=== PATIENT | female | born 1960 | race Caucasian/White ===

== ENCOUNTER 2023-11-01 12:12 | Inpatient (IN) ==
[2023-11-01 13:04] LABS: ABS Basophils 0.1 10^3/uL (0.0-0.1); ABS Eosinophils 0.1 10^3/uL (0.0-0.5); ABS Lymphocytes 1.1 10^3/uL (1.0-4.8); ABS Monocytes 0.9 10^3/uL (0.0-0.9); ABS Neutrophils 6.9 10^3/uL (1.5-7.6); Eosinophil % 1.1 %; Hematocrit 38.5 % (35-45); Hemoglobin 12.5 g/dL (11.5-14.3); Lymphocyte % 12.3 %; Mean Corpuscular Hemoglobin 32.4 pg (27-33); Mean Corpuscular Hgb Conc 32.5 g/dL (31-36); Mean Corpuscular Volume 99.7 fL (80-97); Mean Platelet Volume 10.5 fL (7.5-11.2); Platelet Count 239 10^3/uL (150-450); Red Blood Count 3.86 10^6/uL (3.63-4.92); Red Cell Distribution Width 14.9 % (12-17); White Blood Count 9.1 10^3/uL (3.8-11.8)
[2023-11-01 13:15] LABS: INR 0.99 (0.83-1.13)
[2023-11-01 13:25] LABS: ALT 17 U/L (7-52); AST 17 U/L (13-39); Albumin 3.1 g/dL (3.2-5.2); Alkaline Phosphatase 85 U/L (35-149); Anion Gap 18 mmol/L (2-16); Blood Urea Nitrogen 50 mg/dL (6-24); CO2 Carbon Dioxide 25 mmol/L (22-32); Calcium 8.6 mg/dL (8.6-10.3); Chloride 101 mmol/L (101-111); Creatine Kinase 75 U/L (10-223); Creatinine, Serum 1.73 mg/dL (0.51-0.95); Direct Bilirubin 0.1 mg/dL (0.03-0.18); Globulin 3.1 g/dL (2-4); Glucose 86 mg/dL (70-100); Indirect Bilirubin 0.5 mg/dL (0.3-1.0); Lipase 36 U/L (11.0-82.0); Magnesium 1.7 mg/dL (1.9-2.7); Potassium 4.1 mmol/L (3.5-5.0); Sodium 144 mmol/L (135-145); Total Bilirubin 0.6 mg/dL (0.2-1.0); Total Protein 6.2 g/dL (6.4-8.9); eGFR CKD-EPI 32.4 (>60)
[2023-11-01 13:31] LABS: High Sens Troponin Baseline 40 pg/mL (<15)
[2023-11-01 13:36] LABS: Alcohol, S < 13 mg/dL (<13)
[2023-11-01 13:50] LABS: TSH Ultra Thyroid Stim Horm 1.18 mcIU/mL (0.34-5.60)
[2023-11-01] MEDS ORDERED: Lorazepam PYXIS KEY PRN (14:01)
[2023-11-01] MEDS ORDERED: LORazepam 2 mg VIAL 1 ml IV PUSH PRN (14:01)
[2023-11-01 14:06] LABS: Urine Appearance Turbid; Urine Bilirubin 1+ (Negative); Urine Blood 1+ (Negative); Urine Color Yellow; Urine Glucose Negative (Negative); Urine Ketones 1+ (Negative); Urine Nitrite Negative (Negative); Urine Protein 1+ (>=30 mg/dL) (Negative); Urine Specific Gravity 1.017 (1.002-1.030); Urine Urobilinogen 2+ (Negative)
[2023-11-01 14:15] LABS: Urine Bacteria 2+ /HPF (Absent); Urine Red Blood Cell 3+(>10/hpf) /HPF (0-Trace); Urine Squamous Epithelial Cell Present /HPF (Absent); Urine White Blood Cell 3+(>20/hpf) /HPF (0-Trace)
[2023-11-01 14:29] LABS: High Sensitivity Troponin 1 Hr 37 pg/mL (<15)
[2023-11-01 14:33] LABS: Urine Benzodiazepine Screen None Detected (None Detect); Urine Cannabinoids Screen None Detected (None Detect); Urine Opiates Screen None Detected (None Detect)
[2023-11-01] MEDS: Magnesium Sulfate 2 gm BAG 2 GM/50 ML BAG IVPB ONE (14:45)
[2023-11-01] MEDS: Lactated Ringers 1000 ml BAG 1,000 ML IV ONE (16:14)
[2023-11-01] MEDS: Thiamine 100 MG/ML 2 ml VIAL 100 MG, Folic Acid IV 1 MG, Multiple Vitamin IV ADULT 10 M... IV ONE (16:14)
[2023-11-01 17:08] LABS: Folate 5.65 ng/mL (5.90-24.80)
[2023-11-01 17:09] LABS: Vitamin B12 433 pg/mL (180-914)
[2023-11-01 19:17] LABS: Urine Benzodiazepine Screen None Detected (None Detect); Urine Buprenorphine Screen None Detected (None Detect); Urine Cannabinoids Screen None Detected (None Detect); Urine Fentanyl Screen None Detected (None Detect); Urine Hydrocodone Screen None Detected (None Detect); Urine Opiates Screen None Detected (None Detect)
[2023-11-01] MEDS: Lactated Ringers 1000 ml BAG 1,000 ML IV SCH (21:12)
[2023-11-01] MEDS: Thiamine 100 MG/ML 2 ml VIAL 500 MG in NS 0.9% 250 ml 250 ML IV ONE (22:12)
[2023-11-01] MEDS: Heparin 5000 UNITS/ML 1 mL VIAL SUBCUT SCH (22:41)
[2023-11-01] MEDS: cefTRIAXone 1 gm/50 mL D5W 1 GM/50 ML BAG IV SCH (23:35)
[2023-11-02 05:58] LABS: Hematocrit 28.2 % (35-45); Hemoglobin 9.4 g/dL (11.5-14.3); Mean Corpuscular Hgb Conc 33.2 g/dL (31-36); Mean Corpuscular Volume 99.3 fL (80-97); Mean Platelet Volume 10.4 fL (7.5-11.2); Platelet Count 173 10^3/uL (150-450); Red Blood Count 2.84 10^6/uL (3.63-4.92); Red Cell Distribution Width 14.6 % (12-17); White Blood Count 8.9 10^3/uL (3.8-11.8)
[2023-11-02 06:19] LABS: Calcium 7.2 mg/dL (8.6-10.3); Creatinine, Serum 1.55 mg/dL (0.51-0.95); Magnesium 1.5 mg/dL (1.9-2.7)
[2023-11-02] MEDS: Potassium Chlor 20 meq TAB.ER PO ONE ×2 (10:10→18:33)
[2023-11-02] MEDS: Thiamine 100 MG/ML 2 ml VIAL 500 MG in NS 0.9% 250 ml 250 ML IV ONE (12:25)
[2023-11-02] MEDS: Magnesium Sulf 4 GM/100 ML IV 4,000 MG/100 ML BAG IVPB ONE (14:27)
[2023-11-02] MEDS: Thiamine 100 MG/ML 2 ml VIAL 500 MG in NS 0.9% 250 ml 250 ML IV SCH (22:13)
[2023-11-03 04:58] LABS: Hematocrit 29.3 % (35-45); Hemoglobin 9.8 g/dL (11.5-14.3); Mean Corpuscular Hemoglobin 32.9 pg (27-33); Mean Corpuscular Hgb Conc 33.6 g/dL (31-36); Mean Platelet Volume 10.5 fL (7.5-11.2); Platelet Count 172 10^3/uL (150-450); Red Blood Count 2.99 10^6/uL (3.63-4.92); Red Cell Distribution Width 14.7 % (12-17)
[2023-11-03 05:20] LABS: Calcium 7.6 mg/dL (8.6-10.3); Creatinine, Serum 1.52 mg/dL (0.51-0.95); Magnesium 2.6 mg/dL (1.9-2.7); Potassium 4.3 mmol/L (3.5-5.0); eGFR CKD-EPI 37.8 (>60)
[2023-11-03] MEDS: Nystatin TOP POWDER 15 GM BTL TOPICAL PRN (13:57)
[2023-11-04 05:46] LABS: ABS Eosinophils 0.2 10^3/uL (0.0-0.5); ABS Lymphocytes 1.2 10^3/uL (1.0-4.8); ABS Monocytes 0.7 10^3/uL (0.0-0.9); ABS Neutrophils 6.4 10^3/uL (1.5-7.6); ABS Nucleated RBC 0.01 10^3/ul; Eosinophil % 2.2 %; Hematocrit 30.3 % (35-45); Hemoglobin 10.1 g/dL (11.5-14.3); Lymphocyte % 13.9 %; Mean Corpuscular Hemoglobin 33.1 pg (27-33); Mean Corpuscular Hgb Conc 33.4 g/dL (31-36); Mean Platelet Volume 10.7 fL (7.5-11.2); Nucleated Red Blood Cells % 0.1 %/100WBC (0.0-0.8); Platelet Count 163 10^3/uL (150-450); Red Blood Count 3.06 10^6/uL (3.63-4.92); Red Cell Distribution Width 14.9 % (12-17); White Blood Count 8.6 10^3/uL (3.8-11.8)
[2023-11-04 06:04] LABS: Calcium 7.8 mg/dL (8.6-10.3); Creatinine, Serum 1.65 mg/dL (0.51-0.95); Magnesium 1.9 mg/dL (1.9-2.7); Phosphorus 2.2 mg/dL (2.5-5.0); Potassium 4.2 mmol/L (3.5-5.0); eGFR CKD-EPI 34.3 (>60)
[2023-11-04] MEDS ORDERED: Magnesium Hydroxide LIQ 30 ML UDC PO PRN (15:13)
[2023-11-04] MEDS ORDERED: Senna TAB 8.6 mg TAB PO PRN (15:13)
[2023-11-05 06:26] LABS: Hematocrit 30.4 % (35-45); Hemoglobin 10.1 g/dL (11.5-14.3); Mean Corpuscular Hgb Conc 33.1 g/dL (31-36); Mean Corpuscular Volume 99.6 fL (80-97); Mean Platelet Volume 10.5 fL (7.5-11.2); Platelet Count 175 10^3/uL (150-450); Red Blood Count 3.05 10^6/uL (3.63-4.92); Red Cell Distribution Width 14.7 % (12-17)
[2023-11-05 06:44] LABS: Calcium 8.3 mg/dL (8.6-10.3); Creatinine, Serum 1.33 mg/dL (0.51-0.95); Magnesium 1.5 mg/dL (1.9-2.7); Potassium 4.4 mmol/L (3.5-5.0); eGFR CKD-EPI 44.4 (>60)
[2023-11-05] MEDS: Magnesium Sulfate 2 gm BAG 2 GM/50 ML BAG IVPB ONE (08:34)
[2023-11-05] MEDS: Polyethylene Glycol 3350 17 GM PACKET PO SCH (08:37)
[2023-11-05] MEDS: Thiamine 100 MG/ML 2 ml VIAL 250 MG in NS 0.9% 100 ml BAG 100 ML IV SCH (10:12)
[2023-11-05] MEDS: Magnesium Hydroxide LIQ 30 ML UDC PO SCH (12:12)
[2023-11-05] MEDS: Senna TAB 8.6 mg TAB PO SCH (22:01)
[2023-11-06 05:43] LABS: ABS Basophils 0.1 10^3/uL (0.0-0.1); ABS Eosinophils 0.4 10^3/uL (0.0-0.5); ABS Lymphocytes 1.3 10^3/uL (1.0-4.8); ABS Monocytes 0.9 10^3/uL (0.0-0.9); ABS Neutrophils 5.4 10^3/uL (1.5-7.6); ABS Nucleated RBC 0.01 10^3/ul; Eosinophil % 4.8 %; Hematocrit 27.9 % (35-45); Hemoglobin 9.5 g/dL (11.5-14.3); Lymphocyte % 16.3 %; Mean Corpuscular Hemoglobin 33.4 pg (27-33); Mean Corpuscular Volume 98.3 fL (80-97); Nucleated Red Blood Cells % 0.1 %/100WBC (0.0-0.8); Platelet Count 183 10^3/uL (150-450); Red Blood Count 2.84 10^6/uL (3.63-4.92); Red Cell Distribution Width 15.1 % (12-17)
[2023-11-06 06:00] LABS: Calcium 8.2 mg/dL (8.6-10.3); Creatinine, Serum 1.15 mg/dL (0.51-0.95); Magnesium 1.6 mg/dL (1.9-2.7); Potassium 4.4 mmol/L (3.5-5.0); eGFR CKD-EPI 52.9 (>60)
[2023-11-06 11:18] LABS: Copper, S 76 mcg/dL (77-206)
[2023-11-06] MEDS: Lactated Ringers 1000 ml BAG 1,000 ML IV ONE ×2 (15:50→19:31)
[2023-11-06 23:10] LABS: Albumin 1.9 g/dL (3.4-4.7); Flag, M-protein Isotype Negative (Negative); Total Protein 4.6 g/dL (6.3 - 7.9)
[2023-11-07 06:42] LABS: ABS Basophils 0.1 10^3/uL (0.0-0.1); ABS Eosinophils 0.4 10^3/uL (0.0-0.5); ABS Lymphocytes 1.2 10^3/uL (1.0-4.8); ABS Neutrophils 6.7 10^3/uL (1.5-7.6); Eosinophil % 4.5 %; Hematocrit 26.2 % (35-45); Hemoglobin 8.9 g/dL (11.5-14.3); Lymphocyte % 12.9 %; Mean Corpuscular Hemoglobin 33.7 pg (27-33); Mean Corpuscular Hgb Conc 33.9 g/dL (31-36); Mean Corpuscular Volume 99.2 fL (80-97); Mean Platelet Volume 10.4 fL (7.5-11.2); Platelet Count 178 10^3/uL (150-450); Red Blood Count 2.65 10^6/uL (3.63-4.92); Red Cell Distribution Width 15.7 % (12-17); White Blood Count 9.4 10^3/uL (3.8-11.8)
[2023-11-07 07:37] LABS: Anion Gap 7 mmol/L (2-16); Blood Urea Nitrogen 13 mg/dL (6-24); CO2 Carbon Dioxide 27 mmol/L (22-32); Calcium 8.5 mg/dL (8.6-10.3); Chloride 104 mmol/L (101-111); Creatinine, Serum 1.07 mg/dL (0.51-0.95); Glucose 90 mg/dL (70-100); Sodium 138 mmol/L (135-145); eGFR CKD-EPI 57.6 (>60)
[2023-11-07 09:14] LABS: Magnesium 1.7 mg/dL (1.9-2.7); Potassium Redraw 4.6 mmol/L (3.5-5.0)
[2023-11-07] MEDS: Enoxaparin 40 MG/0.4 ML SYR SUBCUT SCH (19:58)
[2023-11-09 11:38] LABS: Hematocrit 27.6 % (35-45); Hemoglobin 9.3 g/dL (11.5-14.3); Mean Corpuscular Hemoglobin 33.2 pg (27-33); Mean Corpuscular Hgb Conc 33.7 g/dL (31-36); Mean Corpuscular Volume 98.7 fL (80-97); Mean Platelet Volume 9.1 fL (7.5-11.2); Platelet Count 253 10^3/uL (150-450); Red Cell Distribution Width 15.6 % (12-17); White Blood Count 7.7 10^3/uL (3.8-11.8)
[2023-11-09 11:54] LABS: Calcium 8.9 mg/dL (8.6-10.3); Creatinine, Serum 1.09 mg/dL (0.51-0.95); Magnesium 1.5 mg/dL (1.9-2.7); Potassium 4.9 mmol/L (3.5-5.0); eGFR CKD-EPI 56.4 (>60)
[2023-11-09] MEDS ORDERED: Magnesium Hydroxide LIQ 30 ML UDC PO PRN (17:44)
[2023-11-09] MEDS: Magnesium Sulf 4 GM/100 ML IV 4,000 MG/100 ML BAG IVPB ONE (19:18)
[2023-11-09] MEDS: Senna TAB 8.6 mg TAB PO SCH (20:10)
[2023-11-10 06:37] LABS: CRP High Sensitivity 28.71 mg/L (<2.00); Magnesium 1.7 mg/dL (1.9-2.7)
[2023-11-10 06:45] LABS: High Sens Troponin Baseline 14 pg/mL (<15)
[2023-11-10 07:30] LABS: High Sensitivity Troponin 1 Hr 16 pg/mL (<15)
[2023-11-10 14:13] LABS: Creatine Kinase 24 U/L (10-223)
[2023-11-13 13:53] VITALS: BP 125/67
== END 2023-11-13 11:52 | disposition swing bed (61) | DRG 897 ==
LOC: EDHOLD 12:12 → ED 12:12 → SUATTDRO 13:58 → MEDTELE 20:06
PROVIDERS: ADMIT Internal Medicine; ATTEND Internal Medicine

== ENCOUNTER 2023-11-13 12:56 | Inpatient (IN) ==
[2023-11-13] MEDS ORDERED: Magnesium Hydroxide LIQ 30 ML UDC PO PRN (15:32)
[2023-11-13] MEDS ORDERED: Nystatin TOP POWDER 15 GM BTL TOPICAL PRN (15:32)
[2023-11-13] MEDS ORDERED: Nicotine GUM 2MG FRUIT FLAVOR PO PRN (18:37)
[2023-11-13] MEDS: Senna TAB 8.6 mg TAB PO SCH (20:01)
[2023-11-14] MEDS: Enoxaparin 40 MG/0.4 ML SYR SUBCUT SCH (08:03)
[2023-11-14] MEDS: Polyethylene Glycol 3350 17 GM PACKET PO SCH (08:06)
[2023-11-14 09:59] VITALS: BP 126/75
[2023-11-14 11:17] LABS: ABS Basophils 0.1 10^3/uL (0.0-0.1); ABS Eosinophils 0.3 10^3/uL (0.0-0.5); ABS Lymphocytes 1.1 10^3/uL (1.0-4.8); ABS Monocytes 0.6 10^3/uL (0.0-0.9); ABS Neutrophils 4.4 10^3/uL (1.5-7.6); Hematocrit 27.4 % (35-45); Hemoglobin 9.1 g/dL (11.5-14.3); Mean Corpuscular Hemoglobin 33.4 pg (27-33); Mean Corpuscular Hgb Conc 33.1 g/dL (31-36); Mean Corpuscular Volume 100.9 fL (80-97); Mean Platelet Volume 8.5 fL (7.5-11.2); Platelet Count 342 10^3/uL (150-450); Red Blood Count 2.72 10^6/uL (3.63-4.92); Red Cell Distribution Width 16.2 % (12-17); White Blood Count 6.6 10^3/uL (3.8-11.8)
[2023-11-14 11:51] LABS: Albumin 2.9 g/dL (3.2-5.2); Albumin/Globulin Ratio 1.1 (1-3); Calcium 9.1 mg/dL (8.6-10.3); Creatinine, Serum 1.1 mg/dL (0.51-0.95); Globulin 2.7 g/dL (2-4); Potassium 5.3 mmol/L (3.5-5.0); Total Bilirubin 0.3 mg/dL (0.2-1.0); Total Protein 5.6 g/dL (6.4-8.9); eGFR CKD-EPI 55.8 (>60)
[2023-11-14 12:39] LABS: C Reactive Protein 13.69 mg/L (<8.01)
== END 2023-11-14 12:04 | disposition short-term general hospital (02) | DRG 641 ==
LOC: MEDTELE 12:56 → SUATTDRO 12:56
PROVIDERS: ADMIT Internal Medicine; ATTEND Internal Medicine

== ENCOUNTER 2023-11-14 11:50 | Observation (INO) ==
[2023-11-14] MEDS ORDERED: Nicotine GUM 2MG FRUIT FLAVOR PO PRN (12:12)
[2023-11-14] MEDS ORDERED: Nystatin TOP POWDER 15 GM BTL TOPICAL PRN (12:12)
[2023-11-14] MEDS ORDERED: Magnesium Hydroxide LIQ 30 ML UDC PO PRN (12:12)
[2023-11-14] MEDS: Furosemide 40 mg/4 ml IV VIAL IV SLOW PU ONE (20:55)
[2023-11-14] MEDS: Senna TAB 8.6 mg TAB PO SCH (20:55)
[2023-11-15 06:15] LABS: ABS Basophils 0.1 10^3/uL (0.0-0.1); ABS Eosinophils 0.4 10^3/uL (0.0-0.5); ABS Lymphocytes 1.3 10^3/uL (1.0-4.8); ABS Monocytes 0.8 10^3/uL (0.0-0.9); ABS Neutrophils 5.2 10^3/uL (1.5-7.6); Eosinophil % 5.4 %; Hematocrit 25.7 % (35-45); Hemoglobin 8.7 g/dL (11.5-14.3); Lymphocyte % 17.2 %; Mean Corpuscular Hemoglobin 33.9 pg (27-33); Mean Corpuscular Hgb Conc 33.7 g/dL (31-36); Mean Corpuscular Volume 100.6 fL (80-97); Mean Platelet Volume 8.9 fL (7.5-11.2); Platelet Count 321 10^3/uL (150-450); Red Blood Count 2.55 10^6/uL (3.63-4.92); Red Cell Distribution Width 15.7 % (12-17); White Blood Count 7.8 10^3/uL (3.8-11.8)
[2023-11-15 06:29] LABS: Albumin 2.7 g/dL (3.2-5.2); Albumin/Globulin Ratio 1.1 (1-3); Calcium 8.7 mg/dL (8.6-10.3); Creatinine, Serum 1.27 mg/dL (0.51-0.95); Globulin 2.5 g/dL (2-4); Magnesium 1.5 mg/dL (1.9-2.7); Potassium 4.7 mmol/L (3.5-5.0); Total Bilirubin 0.3 mg/dL (0.2-1.0); Total Protein 5.2 g/dL (6.4-8.9); eGFR CKD-EPI 46.9 (>60)
[2023-11-15] MEDS ORDERED: Enoxaparin 40 MG/0.4 ML SYR SUBCUT SCH (09:00)
[2023-11-15] MEDS: Magnesium Sulf 4 GM/100 ML IV 4,000 MG/100 ML BAG IVPB ONE (10:47)
[2023-11-15] MEDS: Polyethylene Glycol 3350 17 GM PACKET PO SCH (11:37)
[2023-11-15] MEDS ORDERED: Sulfur Hexaflouride MICROSPHR 25 MG VIAL ONE (14:06)
[2023-11-15] MEDS: Enoxaparin 40 MG/0.4 ML SYR SUBCUT SCH (21:36)
[2023-11-15] MEDS: Iodixanol (CONTRAST) 320 MG/ML 100 ML SDV IV ONE (22:18)
[2023-11-16 05:58] LABS: ABS Basophils 0.1 10^3/uL (0.0-0.1); ABS Eosinophils 0.3 10^3/uL (0.0-0.5); ABS Lymphocytes 1.6 10^3/uL (1.0-4.8); ABS Monocytes 0.8 10^3/uL (0.0-0.9); ABS Neutrophils 3.9 10^3/uL (1.5-7.6); ABS Nucleated RBC 0.01 10^3/ul; Eosinophil % 5.1 %; Hematocrit 25.2 % (35-45); Hemoglobin 8.4 g/dL (11.5-14.3); Lymphocyte % 23.7 %; Mean Corpuscular Hemoglobin 33.9 pg (27-33); Mean Corpuscular Hgb Conc 33.4 g/dL (31-36); Mean Corpuscular Volume 101.5 fL (80-97); Nucleated Red Blood Cells % 0.1 %/100WBC (0.0-0.8); Platelet Count 310 10^3/uL (150-450); Red Blood Count 2.48 10^6/uL (3.63-4.92); Red Cell Distribution Width 16.1 % (12-17); White Blood Count 6.8 10^3/uL (3.8-11.8)
[2023-11-16 06:05] LABS: C Reactive Protein 21.32 mg/L (<8.01); Calcium 8.5 mg/dL (8.6-10.3); Creatinine, Serum 1.1 mg/dL (0.51-0.95); Magnesium 2.3 mg/dL (1.9-2.7); Potassium 4.8 mmol/L (3.5-5.0); eGFR CKD-EPI 55.8 (>60)
[2023-11-16 13:30] LABS: Body Fluid Total Nucleated 237 /mcL
[2023-11-16 14:12] LABS: Body Fluid Mono 18 %; Body Fluid Other Cells 12; Body Fluid Total Cells Counted 200
[2023-11-16 17:36] LABS: Body Fluid Source Pleural Fluid
[2023-11-16 17:37] LABS: Body Fluid Appearance Clear; Body Fluid Color Colorless
[2023-11-17 10:06] VITALS: BP 123/66
[2023-11-17 10:17] LABS: Albumin, BF 0.8 g/dL; Fluid Type, Albumin PLEURAL FLUID
[2023-11-18 10:37] LABS: Fluid Type, Protein, Total PLEURAL; Glucose, BF 96 mg/dL; Total Protein, BF 1.3 g/dL
[2023-11-18 12:18] LABS: Lactate Dehydrogenase, BF 200 U/L
== END 2023-11-17 11:14 | disposition swing bed (61) ==
LOC: MEDTELE → SUATTDRO 12:06
PROVIDERS: ADMIT Internal Medicine; ATTEND Internal Medicine

== ENCOUNTER 2023-11-17 11:15 | Inpatient (IN) ==
[2023-11-17] MEDS ORDERED: Al Hydrox/Mg Hydrox/Simet LIQ 30 ML UDC PO PRN (13:33)
[2023-11-17] MEDS ORDERED: Polyethylene Glycol 3350 17 GM PACKET PO PRN (13:33)
[2023-11-17] MEDS ORDERED: Nicotine GUM 2MG FRUIT FLAVOR PO PRN (13:36)
[2023-11-17] MEDS ORDERED: Nystatin TOP POWDER 15 GM BTL TOPICAL PRN (13:36)
[2023-11-17] MEDS: Enoxaparin 40 MG/0.4 ML SYR SUBCUT SCH (18:24)
[2023-11-18 07:53] LABS: Urine Appearance No Cx Clear (Clear); Urine Bilirubin No Culture Negative (Negative); Urine Blood No Culture Negative (Negative); Urine Color No Culture Colorless; Urine Glucose No Culture Negative (Negative); Urine Ketones No Culture Negative (Negative); Urine Leukocytes No Culture Negative Leu/uL (Negative); Urine Nitrite No Culture Negative (Negative); Urine Protein No Culture Negative (Negative); Urine Specific Gravity No Cx 1.004 (1.002-1.030); Urine Urobilinogen No Cx Negative (Negative); Urine pH No Culture 5.5 (5.0-8.0)
[2023-11-18 07:54] LABS: Ur Squamous Epithelial No Cx Present /HPF (Absent); Urine Bacteria No Culture Absent /HPF (Absent); Urine Red Blood Cell No Cult Trace(0-2/hpf) /HPF (0-Trace); Urine White Blood Cell No Cult Trace(0-5/hpf) /HPF (0-Trace)
[2023-11-22] MEDS: Senna TAB 8.6 mg TAB PO PRN (08:54)
[2023-12-05 09:40] VITALS: BP 117/63
== END 2023-12-05 12:16 | disposition short-term general hospital (02) | DRG 206 ==
LOC: MEDTELE 11:15 → SUATTDRO 13:33
PROVIDERS: ADMIT Family Medicine; ATTEND Hospitalist

== ENCOUNTER 2023-12-05 12:23 | Inpatient (IN) ==
[2023-12-05] MEDS ORDERED: Polyethylene Glycol 3350 17 GM PACKET PO PRN (13:25)
[2023-12-05] MEDS ORDERED: Senna TAB 8.6 mg TAB PO PRN (13:25)
[2023-12-05] MEDS ORDERED: Nicotine GUM 2MG FRUIT FLAVOR PO PRN (13:25)
[2023-12-05] MEDS ORDERED: Al Hydrox/Mg Hydrox/Simet LIQ 30 ML UDC PO PRN (13:25)
[2023-12-05] MEDS: Enoxaparin 40 MG/0.4 ML SYR SUBCUT SCH (14:35)
[2023-12-09 04:16] LABS: Urine Appearance Clear; Urine Bilirubin Negative (Negative); Urine Blood Negative (Negative); Urine Color Colorless; Urine Glucose Negative (Negative); Urine Ketones Negative (Negative); Urine Nitrite Negative (Negative); Urine Protein Negative (Negative); Urine Specific Gravity 1.005 (1.002-1.030); Urine Urobilinogen Negative (Negative)
[2023-12-13] MEDS: Amoxicillin/Clavul 500/125 TAB (Augmentin 500 mg tab) PO SCH (13:45)
[2023-12-14] MEDS: Iodixanol (CONTRAST) 320 MG/ML 100 ML SDV IV ONE (08:05)
[2024-01-11] MEDS: Triamcinolone 0.025% OINT 15 GM TUBE TOPICAL SCH (14:25)
[2024-01-23] MEDS: Enoxaparin 40 MG/0.4 ML SYR SUBCUT SCH (17:41)
[2024-01-23] MEDS: Benzocaine/Menthol LOZ PO PRN (22:45)
[2024-02-04] MEDS: Clotrimazole 1% CREAM 30 gm TOPICAL SCH (11:33)
[2024-02-04] MEDS: Triamcinolone 0.025% OINT 15 GM TUBE TOPICAL SCH (11:34)
[2024-04-14 10:45] VITALS: BP 176/58
== END 2024-04-14 13:10 | DRG 607 ==
LOC: SUATTDRO 12:23 → MEDTELE 12:23
PROVIDERS: ADMIT Hospitalist; ATTEND Internal Medicine

== ENCOUNTER 2024-09-30 12:12 | Inpatient (IN) ==
[2024-09-30 13:27] LABS: ABS Basophils 0.1 10^3/uL (0.0-0.1); ABS Eosinophils 0.6 10^3/uL (0.0-0.5); ABS Lymphocytes 1.7 10^3/uL (1.0-4.8); ABS Monocytes 0.8 10^3/uL (0.0-0.9); ABS Neutrophils 6.6 10^3/uL (1.5-7.6); ABS Nucleated RBC 0.01 10^3/ul; Eosinophil % 5.9 %; Hematocrit 37.6 % (35-45); Hemoglobin 12.5 g/dL (11.5-14.3); Lymphocyte % 17.6 %; Mean Corpuscular Hemoglobin 29.2 pg (27-33); Mean Corpuscular Hgb Conc 33.2 g/dL (31-36); Mean Corpuscular Volume 87.8 fL (80-97); Nucleated Red Blood Cells % 0.1 %/100WBC (0.0-0.8); Platelet Count 342 10^3/uL (150-450); Red Blood Count 4.28 10^6/uL (3.63-4.92); Red Cell Distribution Width 12.7 % (12-17); White Blood Count 9.8 10^3/uL (3.8-11.8)
[2024-09-30 14:02] LABS: Albumin 3.5 g/dL (3.5-5.7); Calcium 9.1 mg/dL (8.6-10.3); Creatinine, Serum 1.45 mg/dL (0.51-0.95); Globulin 3.5 g/dL (2-4); Potassium 5.4 mmol/L (3.5-5.0); Total Bilirubin 0.4 mg/dL (0.2-1.0); eGFR CKD-EPI 39.8 (>60)
[2024-09-30] MEDS: Iodixanol 320 (CONTRAST) 100 ML SDV IV ONE (15:24)
[2024-09-30 15:46] LABS: High Sensitivity Troponin 1 Hr 5 pg/mL (<15)
[2024-09-30] MEDS ORDERED: Polyethylene Glycol 3350 17 GM PACKET PO PRN (16:13)
[2024-09-30] MEDS ORDERED: Senna TAB 8.6 mg TAB PO PRN (16:13)
[2024-09-30] MEDS: cefTRIAXone 1 gm/50 mL D5W 1 GM/50 ML BAG IV SCH (17:04)
[2024-09-30] MEDS: Azithromycin 500 mg/250 ml NS 500 MG/250 ML BAG IVPB ONE (17:26)
[2024-09-30] MEDS: Albuterol 2.5mg/3 ml (0.083%) NEB.SOLN INH SCH (21:14)
[2024-09-30] MEDS: Heparin 5000 UNITS/ML 1 mL VIAL SUBCUT SCH (21:47)
[2024-09-30] MEDS: guaiFENesin 100 mg/5 ml LIQ unit dose cup PO SCH (21:48)
[2024-10-01] MEDS: Nystatin TOP POWDER 15 GM BTL TOPICAL SCH (02:33)
[2024-10-01 07:48] LABS: Anion Gap 10 mmol/L (2-16); Blood Urea Nitrogen 30 mg/dL (6-24); CO2 Carbon Dioxide 25 mmol/L (22-32); Calcium 8.9 mg/dL (8.6-10.3); Chloride 99 mmol/L (101-111); Glucose 92 mg/dL (70-100); Sodium 134 mmol/L (135-145); eGFR CKD-EPI 45.4 (>60)
[2024-10-01 08:33] LABS: ABS Basophils 0.1 10^3/uL (0.0-0.1); ABS Eosinophils 0.8 10^3/uL (0.0-0.5); ABS Lymphocytes 1.4 10^3/uL (1.0-4.8); ABS Monocytes 0.8 10^3/uL (0.0-0.9); ABS Neutrophils 6.9 10^3/uL (1.5-7.6); ABS Nucleated RBC 0.01 10^3/ul; Eosinophil % 8.3 %; Hematocrit 38.1 % (35-45); Hemoglobin 12.7 g/dL (11.5-14.3); Lymphocyte % 14.2 %; Mean Corpuscular Hemoglobin 29.8 pg (27-33); Mean Corpuscular Hgb Conc 33.4 g/dL (31-36); Mean Corpuscular Volume 89.3 fL (80-97); Mean Platelet Volume 8.4 fL (7.5-11.2); Nucleated Red Blood Cells % 0.1 %/100WBC (0.0-0.8); Platelet Count 351 10^3/uL (150-450); Red Blood Count 4.27 10^6/uL (3.63-4.92)
[2024-10-01] MEDS: DULoxetine DR 30 mg CAP PO SCH (10:00)
[2024-10-01] MEDS ORDERED: Sulfur Hexaflouride MICROSPHR 25 MG VIAL IV PRN (10:25)
[2024-10-01] MEDS ORDERED: Albuterol/Ipratropium NEB.SOL (2.5/0.5 MG) 3 ML NEB.SOLN INH PRN (14:23)
[2024-10-01] MEDS: Azithromycin 250 MG in NS 0.9% 250 ml 250 ML IVPB SCH (17:21)
[2024-10-02 06:36] LABS: ABS Basophils 0.1 10^3/uL (0.0-0.1); ABS Eosinophils 0.8 10^3/uL (0.0-0.5); ABS Lymphocytes 1.9 10^3/uL (1.0-4.8); ABS Monocytes 0.8 10^3/uL (0.0-0.9); ABS Neutrophils 6.1 10^3/uL (1.5-7.6); ABS Nucleated RBC 0.01 10^3/ul; Eosinophil % 8.2 %; Hemoglobin 11.2 g/dL (11.5-14.3); Lymphocyte % 19.4 %; Mean Corpuscular Hemoglobin 30.1 pg (27-33); Mean Corpuscular Volume 88.5 fL (80-97); Mean Platelet Volume 8.4 fL (7.5-11.2); Nucleated Red Blood Cells % 0.1 %/100WBC (0.0-0.8); Platelet Count 333 10^3/uL (150-450); Red Blood Count 3.73 10^6/uL (3.63-4.92); Red Cell Distribution Width 12.9 % (12-17); White Blood Count 9.5 10^3/uL (3.8-11.8)
[2024-10-02 06:55] LABS: Calcium 8.7 mg/dL (8.6-10.3); Creatinine, Serum 1.45 mg/dL (0.51-0.95); Magnesium 1.9 mg/dL (1.9-2.7); Potassium 5.5 mmol/L (3.5-5.0); eGFR CKD-EPI 39.8 (>60)
[2024-10-02] MEDS: SODIUM ZIRCONIUM CYCLOSILICATE 10 GM PACKET PO ONE (11:42)
[2024-10-03 06:45] LABS: ABS Basophils 0.1 10^3/uL (0.0-0.1); ABS Eosinophils 0.6 10^3/uL (0.0-0.5); ABS Lymphocytes 1.7 10^3/uL (1.0-4.8); ABS Monocytes 0.9 10^3/uL (0.0-0.9); ABS Neutrophils 6.1 10^3/uL (1.5-7.6); Eosinophil % 6.4 %; Hemoglobin 11.3 g/dL (11.5-14.3); Lymphocyte % 18.3 %; Mean Corpuscular Hemoglobin 29.3 pg (27-33); Mean Corpuscular Hgb Conc 33.3 g/dL (31-36); Mean Corpuscular Volume 87.9 fL (80-97); Mean Platelet Volume 8.3 fL (7.5-11.2); Platelet Count 344 10^3/uL (150-450); Red Blood Count 3.87 10^6/uL (3.63-4.92); Red Cell Distribution Width 12.9 % (12-17); White Blood Count 9.5 10^3/uL (3.8-11.8)
[2024-10-03 07:02] LABS: Calcium 8.8 mg/dL (8.6-10.3); Creatinine, Serum 1.28 mg/dL (0.51-0.95); Potassium 4.7 mmol/L (3.5-5.0); eGFR CKD-EPI 46.2 (>60)
[2024-10-03 09:53] VITALS: BP 140/54
== END 2024-10-03 11:00 | DRG 187 ==
LOC: ED 12:12 → EDHOLD 12:12 → OBSVTOIN 16:10 → EDHOLD 17:03 → MED 19:39
PROVIDERS: ADMIT Student in an Organized Health Care Education/Training Program; ATTEND Student in an Organized Health Care Education/Training Program